=== PATIENT | female | born 1995 ===

== ENCOUNTER 2024-01-22 10:58 | Emergency (ER) | payer BC ==
[2024-01-22] MEDS ORDERED: Acetaminophen 500 MG TAB ONE (11:36)
[2024-01-22] MEDS ORDERED: Metoclopramide HCl 10 MG (2 mL) VIAL ONE (11:37)
[2024-01-22] MEDS ORDERED: diphenhydrAMINE 50 MG/ML VIAL ONE (11:37)
[2024-01-22] MEDS ORDERED: Ketorolac Tromethamine 30 MG (1 mL) VIAL ONE (11:37)
== END 2024-01-22 13:50 | disposition home or self-care (01) ==
LOC: ERS 10:58
DX: G43.909 Migraine, unspecified, not intractable, without status migrainosus (principal); Z55.6 Problems related to health literacy
CPT/HCPCS: 93005; 96365; 96375; J1200; J1885; J2765